=== PATIENT | female | born 1945 | race Caucasian/White ===

== ENCOUNTER 2017-07-09 11:53 | Emergency (ER) | payer MEDICARE ==
[~2017-07-09] VITALS: Ht 162.6 cm; Wt 60.0 kg
[~2017-07-09 11:53] MED LIST: CARB/LEVO1 TA4 PO; COMBIVENT IN; DULERA1 AE1 IN; PRILOSEC20 MG PO
[2017-07-09] MEDS ORDERED: EC-NAPROSYN500 MG PO (12:29)
[2017-07-09] MEDS ORDERED: PERCOCET 5/325M1 TAB PO (12:29)
[2017-07-09 12:51] VITALS: BP 132/83
== END 2017-07-09 13:36 | disposition home or self-care (01) ==
LOC: ED 11:53
PROC: 2W38X1Z Immobilization of Right Upper Extremity using Splint (ICD-10-PCS; principal; 2017-07-09)
DX: S42.341A Displaced spiral fracture of shaft of humerus, right arm, initial encounter for closed fracture (principal); S80.02XA Contusion of left knee, initial encounter; J44.9 Chronic obstructive pulmonary disease, unspecified; M81.0 Age-related osteoporosis without current pathological fracture; G25.0 Essential tremor; F17.200 Nicotine dependence, unspecified, uncomplicated; W01.0XXA Fall on same level from slipping, tripping and stumbling without subsequent striking against object, initial encounter; Y92.009 Unspecified place in unspecified non-institutional (private) residence as the place of occurrence of the external cause

== ENCOUNTER 2018-03-17 14:00 | Emergency (ER) | payer MEDICARE ==
[~2018-03-17] VITALS: Ht 162.6 cm; Wt 48.6 kg
[~2018-03-17 14:00] MED LIST changes: +EC-NAPROSYN500 MG PO; +PERCOCET 5/325M1 TAB PO
[2018-03-17 14:47] LABS: HEMOGLOBIN 16.4 g/dl (12.0-16.0); IMMATURE GRANULOCYTES 0.4 % (0.0-1.0); MEAN CELL VOLUME 91.9 fL CALC (80.0-100.0); MEAN CORPUSCULAR HGB 30.3 pG CALC (26.0-32.0); NEUT# 9.71 thou/uL (2.00-7.15); RED BLOOD COUNT 5.41 mill/uL (4.20-5.60); RED CELL DISTRI WIDTH 13.3 % (11.5-15.5)
[2018-03-17 14:58] LABS: ALBUMIN 4.9 g/dL (3.2-5.0); ALKALINE PHOSPHATASE 72 u/l (38-126); AMYLASE 44 u/l (30-110); ANION GAP 22 (6-22 (CALC)); BILIRUBIN, TOTAL 0.9 mg/dL (0.0-1.4); BUN 16 mg/dL (8-23); BUN/CREATININE RATIO 15 (12-20 (CALC)); CARBON DIOXIDE 23 mmol/l (22-30); CHLORIDE 102 mmol/l (95-108); GFR 55 ML/MIN (>=60 (CALC)); GFR FOR AFR.AMER. > 60 ML/MIN (>=60 (CALC)); LIPASE 28 u/l (23-300); SGOT/AST 24 u/l (9-36); SGPT/ALT 36 u/l (11-66); SODIUM 143 mmol/l (137-146)
[2018-03-17 15:00] LABS: TOTAL PROTEIN 8.4 g/dL (6.3-8.2)
[2018-03-17 15:09] LABS: HEMATOCRIT 49.7 % (37.0-47.0)
[2018-03-17 16:40] LABS: URINE BLOOD DIPSTICK LARGE (NEGATIVE); URINE COLOR YELLOW; URINE GLUCOSE - DIPSTICK NEGATIVE (NEGATIVE); URINE KETONE 40 mg/dL (NEGATIVE); URINE NITRITE - DIPSTICK NEGATIVE (Negative); URINE PH 5.5 (4.5-8.0); URINE PROTEIN - DIPSTICK TRACE mg/dL (NEG-TRACE); URINE SPECIFIC GRAVITY >=1.030; URINE UROBILINOGEN - DIPSTICK 0.2 E.U./dL (0.2)
[2018-03-17 16:46] LABS: URINE BILIRUBIN - DIPSTICK SMALL (NEGATIVE); URINE CLARITY CLOUDY; URINE LEUK ESTERASE SMALL (NEGATIVE)
[2018-03-17 16:55] LABS: URINE RBC TNTC RBC/hpf (0-5); URINE SQUAMOUS EPITHELIAL CELL FEW EPI/hpf (0-FEW)
[2018-03-17] MEDS ORDERED: IBUPROFEN600 MG PO (20:58)
[2018-03-17] MEDS ORDERED: EQ MAGNESIUM CI1 SOL PO (20:58)
[2018-03-17] MEDS ORDERED: Levaquin PO (20:59)
[2018-03-17 22:17] VITALS: BP 138/72
== END 2018-03-17 22:18 | disposition home or self-care (01) ==
LOC: ED 14:00
PROVIDERS: Family Medicine
DX: N13.2 Hydronephrosis with renal and ureteral calculous obstruction (principal); R10.9 Unspecified abdominal pain; K59.00 Constipation, unspecified; K44.9 Diaphragmatic hernia without obstruction or gangrene
CPT/HCPCS: J1956

== ENCOUNTER 2023-05-11 12:58 | Observation (INO) | payer MEDICARE, MEDICAID ==
[~2023-05-11] VITALS: Ht 162.6 cm; Wt 41.4 kg
[~2023-05-11 12:58] MED LIST changes: +EQ MAGNESIUM CI1 SOL PO; +IBUPROFEN600 MG PO; +Levaquin PO
[2023-05-11 16:18] LABS: BASO% 0.1 % (0-3); HEMATOCRIT 45.8 % (37.0-47.0); HEMOGLOBIN 14.8 g/dl (12.0-16.0); IMMATURE GRANULOCYTES 0.2 % (0.0-5.0); LYMPH% 39.5 % (15-41); MEAN CELL VOLUME 93.1 fL CALC (80.0-100.0); MEAN CORPUSCULAR HGB 30.1 pG CALC (26.0-32.0); MEAN CORPUSCULAR HGB CONC 32.3 g/dL CAL (32.0-36.0); MONO% 2.9 % (2-13); NEUT# 8.81 thou/uL (2.00-7.15); NEUT% 57.3 % (42-76); RED BLOOD COUNT 4.92 mill/uL (4.20-5.60); RED CELL DISTRI WIDTH 12.6 % (11.5-15.5)
[2023-05-11 16:36] LABS: ALBUMIN 4.6 g/dL (3.2-5.0); ALKALINE PHOSPHATASE 56 u/l (38-126); ANION GAP 13 (6-22 (CALC)); CARBON DIOXIDE 26 mmol/l (22-30); CHLORIDE 107 mmol/l (95-108); POTASSIUM 4.6 mmol/l (3.5-5.1); SGOT/AST 25 u/l (9-36); SODIUM 142 mmol/l (137-146); TOTAL PROTEIN 7.2 g/dL (6.3-8.2)
[2023-05-11 16:40] LABS: BUN 28 mg/dL (8-23); BUN/CREATININE RATIO 38 (12-20 (CALC)); CREATININE 0.7 mg/dL (0.5-1.0); GFR FOR AFR.AMER. > 60 ML/MIN (>=60 (CALC)); GFR OTHER RACES > 60 ML/MIN (>=60 (CALC))
[2023-05-11 16:44] LABS: BILIRUBIN, TOTAL 0.6 mg/dL (0.02-1.3)
[2023-05-11] MEDS ORDERED: TRELEGY ELLIPTA1 AER (17:37)
[2023-05-11 20:32] VITALS: BP 134/77
[2023-05-12 03:21] LABS: URINE BILIRUBIN - DIPSTICK NEGATIVE (NEGATIVE); URINE BLOOD DIPSTICK SMALL (NEGATIVE); URINE COLOR YELLOW; URINE GLUCOSE - DIPSTICK NEGATIVE (NEGATIVE); URINE KETONE 15 mg/dL (NEGATIVE); URINE LEUK ESTERASE NEGATIVE (NEGATIVE); URINE NITRITE - DIPSTICK NEGATIVE (Negative); URINE PH 6.5 (4.5-8.0); URINE PROTEIN - DIPSTICK TRACE mg/dL (NEG-TRACE); URINE SPECIFIC GRAVITY 1.025; URINE UROBILINOGEN - DIPSTICK 0.2 E.U./dL (0.2)
[2023-05-12 03:26] LABS: URINE BACTERIA FEW hpf; URINE CALCIUM OXALATE CRYSTALS MANY lpf; URINE SQUAMOUS EPITHELIAL CELL MODERATE EPI/hpf (0-FEW); URINE TRANSITIONAL EPI. CELLS RARE hpf; URINE WBC 0-2 WBC/hpf (0-5)
[2023-05-12 04:09] VITALS: BP 134/71
[2023-05-12 06:05] LABS: BASO% 0.1 % (0-3); HEMATOCRIT 45.5 % (37.0-47.0); HEMOGLOBIN 14.7 g/dl (12.0-16.0); IMMATURE GRANULOCYTES 0.1 % (0.0-5.0); MEAN CELL VOLUME 92.9 fL CALC (80.0-100.0); MEAN CORPUSCULAR HGB CONC 32.3 g/dL CAL (32.0-36.0); MONO% 3.6 % (2-13); NEUT# 7.54 thou/uL (2.00-7.15); NEUT% 51.5 % (42-76); RED BLOOD COUNT 4.9 mill/uL (4.20-5.60); RED CELL DISTRI WIDTH 12.5 % (11.5-15.5)
[2023-05-12 06:06] LABS: ALKALINE PHOSPHATASE 41 u/l (38-126); BILIRUBIN, TOTAL 0.6 mg/dL (0.02-1.3); BUN 27 mg/dL (8-23); BUN/CREATININE RATIO 43 (12-20 (CALC)); CHLORIDE 110 mmol/l (95-108); CREATININE 0.6 mg/dL (0.5-1.0); GFR FOR AFR.AMER. > 60 ML/MIN (>=60 (CALC)); GFR OTHER RACES > 60 ML/MIN (>=60 (CALC)); MAGNESIUM 1.9 mg/dL (1.6-2.3); POTASSIUM 4.7 mmol/l (3.5-5.1); SGOT/AST 27 u/l (9-36); SODIUM 140 mmol/l (137-146); TOTAL PROTEIN 6.4 g/dL (6.3-8.2)
[2023-05-12 06:19] LABS: ANION GAP 16 (6-22 (CALC)); CARBON DIOXIDE 19 mmol/l (22-30)
[2023-05-12 06:44] LABS: LYMPH% 44.7 % (15-41)
[2023-05-12 07:23] VITALS: BP 100/63
[2023-05-12 15:11] VITALS: BP 117/68
[2023-05-12 19:16] VITALS: BP 119/73
[2023-05-12 19:21] VITALS: BP 119/73
[2023-05-13 03:45] VITALS: BP 131/71
[2023-05-13 04:20] VITALS: BP 131/71
[2023-05-13 06:09] LABS: BASO% 0.1 % (0-3); EOS% 0.5 % (0-8); IMMATURE GRANULOCYTES 0.3 % (0.0-5.0); MEAN CELL VOLUME 94.3 fL CALC (80.0-100.0); MEAN CORPUSCULAR HGB CONC 31.8 g/dL CAL (32.0-36.0); MONO% 4.6 % (2-13); NEUT# 4.48 thou/uL (2.00-7.15); NEUT% 31.6 % (42-76); RED BLOOD COUNT 4.07 mill/uL (4.20-5.60); RED CELL DISTRI WIDTH 12.7 % (11.5-15.5)
[2023-05-13 06:10] LABS: HEMATOCRIT 38.4 % (37.0-47.0); HEMOGLOBIN 12.2 g/dl (12.0-16.0)
[2023-05-13 06:11] LABS: LYMPH% 62.9 % (15-41)
[2023-05-13 06:15] LABS: ALKALINE PHOSPHATASE 39 u/l (38-126); BILIRUBIN, TOTAL 0.5 mg/dL (0.02-1.3); BUN 21 mg/dL (8-23); BUN/CREATININE RATIO 34 (12-20 (CALC)); CARBON DIOXIDE 21 mmol/l (22-30); CHLORIDE 111 mmol/l (95-108); CREATININE 0.6 mg/dL (0.5-1.0); GFR FOR AFR.AMER. > 60 ML/MIN (>=60 (CALC)); GFR OTHER RACES > 60 ML/MIN (>=60 (CALC)); SGOT/AST 23 u/l (9-36); SODIUM 138 mmol/l (137-146); TOTAL PROTEIN 5.3 g/dL (6.3-8.2)
[2023-05-13 06:17] LABS: ALBUMIN 3.1 g/dL (3.2-5.0); ANION GAP 10 (6-22 (CALC)); POTASSIUM 3.6 mmol/l (3.5-5.1)
[2023-05-13 07:00] VITALS: BP 128/71
== END 2023-05-13 13:50 | disposition home or self-care (01) ==
LOC: ED 12:58 → MS2 17:37
PROVIDERS: Family Medicine; Nurse Practitioner Family; ADMIT Internal Medicine; ATTEND Internal Medicine
DX: K56.41 Fecal impaction (principal); K56.7 Ileus, unspecified; J44.9 Chronic obstructive pulmonary disease, unspecified; C91.10 Chronic lymphocytic leukemia of B-cell type not having achieved remission; G25.0 Essential tremor; F17.210 Nicotine dependence, cigarettes, uncomplicated
CPT/HCPCS: J1650

== ENCOUNTER 2025-01-16 16:52 | Observation (INO) | payer MEDICARE ==
[2025-01-16] VITALS (24 sets, daily range): BP systolic 139–162; BP diastolic 77–127
[~2025-01-16] VITALS: Ht 162.6 cm; Wt 35.4 kg
[~2025-01-16 16:52] MED LIST changes: +CALCIUM CITRAT PO; +CVS MUCUS EXT1200 MG PO; +D325 MCG PO; +IPRATROPIU0.5 MG/3 M IN; +NEBULIZER NB; +OMEPRAZOLE DR40 MG PO; +SINEMET 10/1001 TA1 PO; +STOOL SOFTENER100 M1 PO; +TRELEGY ELLIPTA1 AER
[2025-01-16] MEDS ORDERED: SODIUM CHLORIDE 0.9% 1,000 ML IV ONE ×2 (17:25→18:55)
[2025-01-16 17:32] LABS: BASO% 0.2 % (0-3); EOS% 0.6 % (0-8); HEMATOCRIT 49.8 % (37.0-47.0); HEMOGLOBIN 15.9 g/dl (12.0-16.0); IMMATURE GRANULOCYTES 0.1 % (0.0-5.0); LYMPH% 61.5 % (15-41); MEAN CELL VOLUME 94.3 fL CALC (80.0-100.0); MEAN CORPUSCULAR HGB 30.1 pG CALC (26.0-32.0); MEAN CORPUSCULAR HGB CONC 31.9 g/dL CAL (32.0-36.0); MONO% 3.9 % (2-13); NEUT# 5.13 thou/uL (2.00-7.15); NEUT% 33.7 % (42-76); RED BLOOD COUNT 5.28 mill/uL (4.20-5.60); RED CELL DISTRI WIDTH 13.1 % (11.5-15.5)
[2025-01-16 17:43] LABS: ALBUMIN 4.2 g/dL (3.2-5.0); ALKALINE PHOSPHATASE 68 u/l (38-126); BUN 16 mg/dL (8-23); BUN/CREATININE RATIO 30 (12-20 (CALC)); CHLORIDE 106 mmol/l (95-108); CREATININE 0.5 mg/dL (0.5-1.0); ESTIMATED GFR 96 ML/MIN (>=90 (CALC)); POTASSIUM 2.6 mmol/l (3.5-5.1); SGOT/AST 29 u/l (9-36); SODIUM 144 mmol/l (137-146); TOTAL PROTEIN 7.2 g/dL (6.3-8.2)
[2025-01-16 17:54] LABS: ANION GAP 13 (6-22 (CALC)); BILIRUBIN, TOTAL 0.7 mg/dL (0.02-1.3); CARBON DIOXIDE 28 mmol/l (22-30)
[2025-01-16] MEDS ORDERED: POTASSIUM CHLORIDE 20 MEQ/PKT POWDER PO ONE (18:00)
[2025-01-16] MEDS ORDERED: AZITHROMYCIN 500 MG in SODIUM CHLORIDE 0.9% 500 ML IV ONE (18:05)
[2025-01-16 18:21] LABS: URINE BILIRUBIN - DIPSTICK Negative (NEGATIVE); URINE BLOOD DIPSTICK Negative (NEGATIVE); URINE GLUCOSE - DIPSTICK Negative (NEGATIVE); URINE KETONE Trace mg/dL (NEGATIVE); URINE LEUK ESTERASE Negative (NEGATIVE); URINE NITRITE - DIPSTICK Negative (Negative); URINE PROTEIN - DIPSTICK 30 mg/dL (NEG-TRACE); URINE SPECIFIC GRAVITY 1.025; URINE UROBILINOGEN - DIPSTICK 0.2 E.U./dL (0.2)
[2025-01-16 18:27] LABS: URINE COLOR Yellow
[2025-01-16 18:28] LABS: URINE EPITHELIAL CELLS FEW EPI/hpf (0-FEW); URINE MUCUS MODERATE hpf (NONE-FEW)
[2025-01-16] MEDS ORDERED: POTASSIUM CHLORIDE 10MEQ 50 ML IV ONE (18:40)
[2025-01-16] MEDS ORDERED: ACETAMINOPHEN 325 MG/TAB PO PRN (20:00)
[2025-01-16] MEDS ORDERED: MAGNESIUM HYDROXIDE 30 ML UDC PO PRN (20:00)
[2025-01-16] MEDS ORDERED: CLARIFY DOSE PO PRN (20:10)
[2025-01-16] MEDS ORDERED: [UNRECOGNIZED DRUG - REMARK] PO PRN (20:55)
[2025-01-16] MEDS ORDERED: CARBIDOPA/LEVODOPA 25/100 MG IR 1 COMBO/TAB PO SCH (21:00)
[2025-01-16] MEDS ORDERED: ENOXAPARIN SODIUM 40 MG/0.4 ML SYR SC SCH (21:00)
[2025-01-16] MEDS ORDERED: dilTIAZem HCL 30 MG/TAB PO SCH (21:21)
[2025-01-16] MEDS ORDERED: MAGNESIUM SULFATE HEPTAHYDRATE 50 ML IV ONE (21:25)
[2025-01-16] MEDS ORDERED: methylPREDNISolone Sod Succ 40 MG/ML SDV IV SCH (22:00)
[2025-01-16] MEDS ORDERED: IPRATROPIUM-Albuterol 0.5MG-2.5MG/3 ML NEB SCH (23:00)
[2025-01-17] VITALS (17 sets, daily range): BP systolic 111–156; BP diastolic 71–102
[2025-01-17 05:34] LABS: HEMATOCRIT 45.5 % (37.0-47.0); HEMOGLOBIN 14.4 g/dl (12.0-16.0); MEAN CORPUSCULAR HGB 30.4 pG CALC (26.0-32.0); MEAN CORPUSCULAR HGB CONC 31.6 g/dL CAL (32.0-36.0); RED BLOOD COUNT 4.74 mill/uL (4.20-5.60); RED CELL DISTRI WIDTH 13.2 % (11.5-15.5)
[2025-01-17 05:53] LABS: ALBUMIN 3.5 g/dL (3.2-5.0); BILIRUBIN, TOTAL 0.5 mg/dL (0.02-1.3); CREATININE 0.4 mg/dL (0.5-1.0); TOTAL PROTEIN 6.1 g/dL (6.3-8.2)
[2025-01-17 06:02] LABS: POTASSIUM 3.3 mmol/l (3.5-5.1)
[2025-01-17] MEDS ORDERED: POTASSIUM CHLORIDE 20 MEQ/TAB PO SCH (07:30)
[2025-01-17] MEDS ORDERED: PANTOPRAZOLE SODIUM Sesquihydr 40 MG/TAB PO SCH (09:00)
[2025-01-17] MEDS ORDERED: LOPERAMIDE HCL 2 MG CAP PO PRN (20:55)
[2025-01-17] MEDS ORDERED: AZITHROMYCIN 500 MG in SODIUM CHLORIDE 0.9% 250 ML IV SCH (22:00)
[2025-01-17] MEDS ORDERED: AZITHROMYCIN 500 MG in SODIUM CHLORIDE 0.9% 500 ML IV SCH (22:00)
[2025-01-18] VITALS (7 sets, daily range): BP systolic 108–135; BP diastolic 68–101
[2025-01-18 05:35] LABS: HEMATOCRIT 39.8 % (37.0-47.0); MEAN CELL VOLUME 95.2 fL CALC (80.0-100.0); MEAN CORPUSCULAR HGB 31.1 pG CALC (26.0-32.0); MEAN CORPUSCULAR HGB CONC 32.7 g/dL CAL (32.0-36.0); RED BLOOD COUNT 4.18 mill/uL (4.20-5.60); RED CELL DISTRI WIDTH 13.7 % (11.5-15.5)
[2025-01-18 05:58] LABS: ALBUMIN 3.5 g/dL (3.2-5.0); BILIRUBIN, TOTAL 0.4 mg/dL (0.02-1.3); CREATININE 0.5 mg/dL (0.5-1.0); MAGNESIUM 1.6 mg/dL (1.6-2.3); TOTAL PROTEIN 5.9 g/dL (6.3-8.2)
[2025-01-18 06:02] LABS: POTASSIUM 4.1 mmol/l (3.5-5.1)
[2025-01-18] MEDS ORDERED: DILTIAZEM30 MG PO (07:38)
[2025-01-18] MEDS ORDERED: PREDNISONE10 MG PO (07:39)
[2025-01-18] MEDS ORDERED: LOPERAMIDE HCL2 M1 PO (07:39)
[2025-01-18] MEDS ORDERED: ZITHROMAX250 MG PO (07:40)
== END 2025-01-18 13:10 ==
LOC: ED 16:52 → ED-I 18:30 → ED 18:48 → ICU 18:49
PROVIDERS: Family Medicine; Nurse Practitioner; ADMIT Internal Medicine; ATTEND Internal Medicine
DX: J44.1 Chronic obstructive pulmonary disease with (acute) exacerbation (principal); E87.6 Hypokalemia; R00.0 Tachycardia, unspecified; G25.0 Essential tremor; R64 Cachexia; Z68.1 Body mass index [BMI] 19.9 or less, adult; C91.10 Chronic lymphocytic leukemia of B-cell type not having achieved remission; K91.2 Postsurgical malabsorption, not elsewhere classified; Y83.6 Removal of other organ (partial) (total) as the cause of abnormal reaction of the patient, or of later complication, without mention of misadventure at the time of the procedure; Z90.49 Acquired absence of other specified parts of digestive tract; Z87.891 Personal history of nicotine dependence; R07.9 Chest pain, unspecified
CPT/HCPCS: J0456; J0696; J1650; J3475

== ENCOUNTER 2025-02-06 14:38 | Inpatient (IN) | payer MEDICARE, MEDICAID ==
[~2025-02-06] VITALS: Ht 162.6 cm; Wt 35.0 kg
[2025-02-06] VITALS (13 sets, daily range): BP systolic 91–140; BP diastolic 51–90
[~2025-02-06 14:38] MED LIST changes: +DILTIAZEM30 MG PO; +LOPERAMIDE HCL2 M1 PO; +PREDNISONE10 MG PO; +ZITHROMAX250 MG PO
[2025-02-06] MEDS ORDERED: LACTATED RINGER'S 1,000 ML IV ONE (15:20)
[2025-02-06 15:51] LABS: IMMATURE GRANULOCYTES 0.6 % (0.0-5.0); MEAN CELL VOLUME 97.9 fL CALC (80.0-100.0); MEAN CORPUSCULAR HGB 31.3 pG CALC (26.0-32.0); PLATELET COUNT 264 thou/uL (130-400); RED BLOOD COUNT 5.18 mill/uL (4.20-5.60); RED CELL DISTRI WIDTH 13.4 % (11.5-15.5)
[2025-02-06 16:02] LABS: ALBUMIN 4.1 g/dL (3.2-5.0); CREATININE 0.7 mg/dL (0.5-1.0); HEMATOCRIT 50.7 % (37.0-47.0); HEMOGLOBIN 16.2 g/dl (12.0-16.0); POTASSIUM 3.9 mmol/l (3.5-5.1)
[2025-02-06 16:03] LABS: MANUAL DIFFERENTIAL YES
[2025-02-06 16:06] LABS: BILIRUBIN, TOTAL 1.5 mg/dL (0.02-1.3); TOTAL PROTEIN 7.1 g/dL (6.3-8.2)
[2025-02-06] MEDS ORDERED: DOXYCYCLINE HYCLATE 100 MG in SODIUM CHLORIDE 0.9% 100 ML IV ONE (16:15)
[2025-02-06 16:26] LABS: BAND 3 % (0-8)
[2025-02-06 16:27] LABS: PLATELET ESTIMATE NORMAL
[2025-02-06] MEDS ORDERED: INSULIN LISPRO 100 UNITS/ML ML SC ONE (16:40)
[2025-02-06] MEDS ORDERED: SODIUM CHLORIDE 0.9% 1,000 ML IV ONE (17:35)
[2025-02-06] MEDS ORDERED: ACETAMINOPHEN 325 MG/TAB PO PRN (17:40)
[2025-02-06] MEDS ORDERED: MAGNESIUM HYDROXIDE 30 ML UDC PO PRN (17:40)
[2025-02-06] MEDS ORDERED: SODIUM CHLORIDE 0.9% 1,000 ML IV PRN (17:40)
[2025-02-06] MEDS ORDERED: IPRATROPIUM-Albuterol 0.5MG-2.5MG/3 ML NEB PRN (17:45)
[2025-02-06] MEDS ORDERED: dilTIAZem HCL 30 MG/TAB PO SCH (21:00)
[2025-02-06] MEDS ORDERED: ENOXAPARIN SODIUM 40 MG/0.4 ML SYR SC SCH (21:00)
[2025-02-07] VITALS (9 sets, daily range): BP systolic 91–147; BP diastolic 51–79
[2025-02-07 04:54] LABS: MEAN CELL VOLUME 98.2 fL CALC (80.0-100.0); MEAN CORPUSCULAR HGB 31.5 pG CALC (26.0-32.0); RED BLOOD COUNT 3.94 mill/uL (4.20-5.60); RED CELL DISTRI WIDTH 13.6 % (11.5-15.5)
[2025-02-07 05:01] LABS: HEMATOCRIT 38.7 % (37.0-47.0); HEMOGLOBIN 12.4 g/dl (12.0-16.0)
[2025-02-07 05:03] LABS: CREATININE 0.5 mg/dL (0.5-1.0); MAGNESIUM 1.3 mg/dL (1.6-2.3); POTASSIUM 3.2 mmol/l (3.5-5.1)
[2025-02-07 05:09] LABS: ALBUMIN 2.7 g/dL (3.2-5.0); BILIRUBIN, TOTAL 0.4 mg/dL (0.02-1.3); TOTAL PROTEIN 5.1 g/dL (6.3-8.2)
[2025-02-07] MEDS ORDERED: POTASSIUM CHLORIDE 20 MEQ/TAB PO SCH ×2 (07:45→08:00)
[2025-02-07] MEDS ORDERED: MAGNESIUM SULFATE HEPTAHYDRATE 100 ML IV SCH (08:30)
[2025-02-07] MEDS ORDERED: AZITHROMYCIN 500 MG in SODIUM CHLORIDE 0.9% 500 ML IV SCH (09:00)
[2025-02-07] MEDS ORDERED: methylPREDNISolone Sod Succ 40 MG/ML SDV IV SCH (10:30)
[2025-02-07] MEDS ORDERED: DIATRIZOATE MEGLUMINE & SODIUM 30 ML/BTL PO SCH (11:00)
[2025-02-07] MEDS ORDERED: AZITHROMYCIN 500 MG in SODIUM CHLORIDE 0.9% 250 ML IV SCH (11:00)
[2025-02-07 12:31] LABS: URINE BLOOD DIPSTICK Large (NEGATIVE); URINE COLOR Brown; URINE GLUCOSE - DIPSTICK 100 mg/dL (NEGATIVE); URINE KETONE 15 mg/dL (NEGATIVE); URINE LEUK ESTERASE Negative (NEGATIVE); URINE NITRITE - DIPSTICK Negative (Negative); URINE PH 5.5 (4.5-8.0); URINE PROTEIN - DIPSTICK 100 mg/dL (NEG-TRACE); URINE SPECIFIC GRAVITY 1.025; URINE UROBILINOGEN - DIPSTICK 0.2 E.U./dL (0.2)
[2025-02-07 12:41] LABS: URINE RBC >100 RBC/hpf (0-5)
[2025-02-07 12:46] LABS: URINE SQUAMOUS EPITHELIAL CELL FEW EPI/hpf (0-FEW)
[2025-02-07 12:47] LABS: URINE MUCUS MODERATE hpf (NONE-FEW)
[2025-02-07 12:48] LABS: URINE BACTERIA MODERATE hpf; URINE YEAST MODERATE hpf
[2025-02-07] MEDS ORDERED: IPRATROPIUM-Albuterol 0.5MG-2.5MG/3 ML NEB SCH (15:00)
[2025-02-07] MEDS ORDERED: ENOXAPARIN SODIUM 30 MG/0.3 ML INJ SC SCH (21:00)
[2025-02-08] VITALS (7 sets, daily range): BP systolic 100–167; BP diastolic 55–87
[2025-02-08] MEDS ORDERED: SIMETHICONE 20 MG/0.3 ML PO ONE (00:27)
[2025-02-08 06:03] LABS: HEMATOCRIT 34.8 % (37.0-47.0); HEMOGLOBIN 10.9 g/dl (12.0-16.0); IMMATURE GRANULOCYTES 0.3 % (0.0-5.0); LYMPH% 45.9 % (15-41); MEAN CELL VOLUME 97.5 fL CALC (80.0-100.0); MEAN CORPUSCULAR HGB 30.5 pG CALC (26.0-32.0); MEAN CORPUSCULAR HGB CONC 31.3 g/dL CAL (32.0-36.0); MONO% 3.2 % (2-13); NEUT# 11.75 thou/uL (2.00-7.15); NEUT% 50.6 % (42-76); RED BLOOD COUNT 3.57 mill/uL (4.20-5.60); RED CELL DISTRI WIDTH 13.8 % (11.5-15.5)
[2025-02-08 06:17] LABS: ALBUMIN 2.7 g/dL (3.2-5.0); CREATININE 0.4 mg/dL (0.5-1.0); POTASSIUM 3.8 mmol/l (3.5-5.1); TOTAL PROTEIN 5.1 g/dL (6.3-8.2)
[2025-02-08 06:29] LABS: BILIRUBIN, TOTAL 0.2 mg/dL (0.02-1.3)
[2025-02-08] MEDS ORDERED: BOUDREAUX'S BUTT PASTE ZINC OXIDE 57 G PASTE EX SCH (14:30)
[2025-02-09] VITALS (8 sets, daily range): BP systolic 130–163; BP diastolic 80–94
[2025-02-09 05:35] LABS: HEMATOCRIT 37.4 % (37.0-47.0); HEMOGLOBIN 11.9 g/dl (12.0-16.0); IMMATURE GRANULOCYTES 0.2 % (0.0-5.0); MEAN CELL VOLUME 97.7 fL CALC (80.0-100.0); MEAN CORPUSCULAR HGB 31.1 pG CALC (26.0-32.0); MEAN CORPUSCULAR HGB CONC 31.8 g/dL CAL (32.0-36.0); MONO% 1.1 % (2-13); NEUT# 9.03 thou/uL (2.00-7.15); NEUT% 41.7 % (42-76); RED BLOOD COUNT 3.83 mill/uL (4.20-5.60); RED CELL DISTRI WIDTH 13.9 % (11.5-15.5)
[2025-02-09 05:42] LABS: ALBUMIN 3.1 g/dL (3.2-5.0); BILIRUBIN, TOTAL 0.2 mg/dL (0.02-1.3); CREATININE 0.4 mg/dL (0.5-1.0); MAGNESIUM 1.8 mg/dL (1.6-2.3); POTASSIUM 3.7 mmol/l (3.5-5.1); TOTAL PROTEIN 5.7 g/dL (6.3-8.2)
[2025-02-10] VITALS (8 sets, daily range): BP systolic 134–159; BP diastolic 81–100
[2025-02-10 04:52] LABS: HEMOGLOBIN 12.3 g/dl (12.0-16.0); MEAN CELL VOLUME 97.3 fL CALC (80.0-100.0); MEAN CORPUSCULAR HGB 30.7 pG CALC (26.0-32.0); MEAN CORPUSCULAR HGB CONC 31.5 g/dL CAL (32.0-36.0); RED BLOOD COUNT 4.01 mill/uL (4.20-5.60); RED CELL DISTRI WIDTH 13.6 % (11.5-15.5)
[2025-02-10 05:07] LABS: BILIRUBIN, TOTAL 0.2 mg/dL (0.02-1.3); CREATININE 0.5 mg/dL (0.5-1.0); MAGNESIUM 1.7 mg/dL (1.6-2.3); POTASSIUM 3.3 mmol/l (3.5-5.1); TOTAL PROTEIN 5.5 g/dL (6.3-8.2)
[2025-02-10] MEDS ORDERED: POTASSIUM CHLORIDE 20 MEQ/TAB PO SCH (09:00)
[2025-02-10] MEDS ORDERED: IPRATROPIUM-Albuterol 0.5MG-2.5MG/3 ML NEB PRN (11:34)
[2025-02-11 03:19] VITALS: BP 159/99
[2025-02-11 05:15] LABS: MEAN CELL VOLUME 95.7 fL CALC (80.0-100.0); MEAN CORPUSCULAR HGB 31.3 pG CALC (26.0-32.0); MEAN CORPUSCULAR HGB CONC 32.7 g/dL CAL (32.0-36.0); RED BLOOD COUNT 4.6 mill/uL (4.20-5.60); RED CELL DISTRI WIDTH 13.5 % (11.5-15.5)
[2025-02-11 05:17] LABS: ALBUMIN 3.6 g/dL (3.2-5.0); CREATININE 0.4 mg/dL (0.5-1.0); MAGNESIUM 1.7 mg/dL (1.6-2.3); TOTAL PROTEIN 6.2 g/dL (6.3-8.2)
[2025-02-11 05:18] LABS: BILIRUBIN, TOTAL 0.4 mg/dL (0.02-1.3); POTASSIUM 4.1 mmol/l (3.5-5.1)
[2025-02-11 05:20] LABS: HEMOGLOBIN 14.4 g/dl (12.0-16.0)
[2025-02-11 05:25] VITALS: BP 167/96
[2025-02-11 09:47] VITALS: BP 172/100
[2025-02-11] MEDS ORDERED: DOXYCYCLINE100 MG PO (10:04)
[2025-02-11] MEDS ORDERED: COZAAR50 MG PO (10:05)
[2025-02-11] MEDS ORDERED: PREDNISONE10 MG PO (10:05)
[2025-02-11] MEDS ORDERED: IPRATROPIU0.5 MG/3 M IN (10:06)
[2025-02-11 11:30] VITALS: BP 172/100
[2025-02-11] MEDS ORDERED: LOSARTAN Potassium 50 MG/TAB PO SCH (11:30)
== END 2025-02-11 15:15 | DRG 190 ==
LOC: ED 14:38 → ED-I 15:43 → ED 17:44 → MS2 17:44
PROVIDERS: Nurse Practitioner; Nurse Practitioner Family; ADMIT Internal Medicine; ATTEND Internal Medicine
DX: J44.1 Chronic obstructive pulmonary disease with (acute) exacerbation (principal); J18.9 Pneumonia, unspecified organism; C91.10 Chronic lymphocytic leukemia of B-cell type not having achieved remission; K90.829 Short bowel syndrome, unspecified; A08.11 Acute gastroenteropathy due to Norwalk agent; Z68.1 Body mass index [BMI] 19.9 or less, adult; E87.6 Hypokalemia; E86.0 Dehydration; E83.42 Hypomagnesemia; J44.0 Chronic obstructive pulmonary disease with (acute) lower respiratory infection; L89.309 Pressure ulcer of unspecified buttock, unspecified stage; K80.20 Calculus of gallbladder without cholecystitis without obstruction; K76.89 Other specified diseases of liver; R63.4 Abnormal weight loss; R91.1 Solitary pulmonary nodule; K83.8 Other specified diseases of biliary tract; G25.0 Essential tremor; F17.200 Nicotine dependence, unspecified, uncomplicated; Z90.49 Acquired absence of other specified parts of digestive tract
CPT/HCPCS: J0456; J0696; J1650; J3475; Q9967